=== PATIENT | male | born 1955 | race Caucasian/White ===

== ENCOUNTER → 2019-10-12 | Day surgery (SDC) | payer BC, OTHER ==
[2019-10-11 10:30] VITALS: BMI 35.0
[~2019-10-12] MED LIST: ACETAMINOPHEN 325 MG TABLET (FP) PO PRN; DEXAMETHASONE SOD PHOSPHATE 4 MG/1 ML VIAL ONE; LACTATED RINGERS SOLUTION 1,000 ML IV SCH; LIDOCAINE 1% P/F 10 MG/ML VIAL INF ONE; LIDOCAINE HCL 1%, 10 MG/ML (20ML VIAL) ONE; MIDAZOLAM HCL 2 MG/2 ML SINGLE DOSE VIAL ONE; ONDANSETRON 4 MG/2 ML VIAL IVPUSH PRN; ONDANSETRON 4 MG/2 ML VIAL ONE; PROPOFOL 20 ML ONE; SUCCINYLCHOLINE CHLORIDE 200 MG/10 ML SYRINGE ONE; ceFAZolin SODIUM 1 GM VIAL ONE; oxyCODONE HCL 5 MG TABLET PO PRN
[2019-10-12 08:23] VITALS: TEMP 97.4
[2019-10-12 09:35] VITALS: BP 118/70; PULSE 65
--- NOTE | 2019-10-12 10:37 | OP ---
DATE OF OPERATION: 10/12/2019 Done at [facility] SURGEON: Legiha Gregory MD AEROSPACE QUALITY ENGINEER: , BRANDT PREOPERATIVE DIAGNOSIS: Left foot plantar fasciitis. POSTOPERATIVE DIAGNOSIS: Left foot plantar fasciitis. PROCEDURE: Tenex debridement with release of plantar fascia. FINDINGS: Thickened plantar fascia insertion into the calcaneus with thickened scar tissue. DESCRIPTION OF PROCEDURE: Informed consent was obtained in the operating room where the left lower extremity was prepped and draped in sterile fashion. A point of maximum tenderness was marked prior to the start of surgery. Using the Tenex procedure and irrigating needle as well as ultrasound for guidance, a 1-cm incision was made. The needle was then introduced through this area on the medial side, and debridement along the plantar fascia insertion allowing for release and debridement was performed under ultrasound guidance. Total time was 63 seconds. The wound was then irrigated with copious amounts of irrigation, closed with single nylon suture. Please note that during the procedure under ultrasound guidance the plantar fascia was both debrided and irrigated using the Tenex needle debridement. This allowed for release as well as irrigation and debridement of damaged tissue. The PA listed above was present and assisted at surgery. Their presence was absolutely medically necessary for the completion of the procedure. They helped hold the arthroscopy, pass instruments (and implants when indicated) and the procedure could not have been completed without their assistance. LEIGHA GREGORY M.D. [id number]
== END | disposition home or self-care (01) ==
LOC: FASU 05:50
PROVIDERS: ATTEND Orthopaedic Surgery
PROC: 0KNW0ZZ Release Left Foot Muscle, Open Approach (ICD-10-PCS; principal; 2019-10-12 07:59)
DX: M72.2 Plantar fascial fibromatosis (principal)
CPT/HCPCS: 82962